=== PATIENT | female | born 1985 | race Two or more races ===

== ENCOUNTER 2019-04-29 10:54 | Day surgery (SDC) | payer BC ==
[~2019-04-29] VITALS: Ht 165.1 cm; Wt 86.3 kg
[~2019-04-29 10:54] MED LIST: BACITRACIN 50,000 UNIT ONE; BACITRACIN OINT 500U/GM, 15 GM ONE; EPINEPHRINE TOPICAL SOLN 1 MG/ML, 30ML ONE; FLUORESCEIN SODIUM 500 MG/5 ML ONE; LIDOCAINE 1%-EPI 1:100K, 20ML ONE; NORE1TAB26 PO; OXYMETAZOLINE NASAL SPRAY 0.05%, 15ML ONE
[2019-04-29 11:04] VITALS: BP 141/93
[2019-04-29] MEDS ORDERED: LACTATED RINGERS 1,000 ML IV SCH (11:08)
[2019-04-29 11:46] LABS: HCG UR SG 1.012 (1.003-1.030)
[2019-04-29] MEDS ORDERED: MIDAZOLAM 1 MG/ML, 2ML ONE (12:02)
[2019-04-29] MEDS ORDERED: FENTANYL PF 250 MCG/5ML ONE (12:02)
[2019-04-29] MEDS ORDERED: PROPOFOL 10 MG/ML, 20ML ONE (12:02)
[2019-04-29] MEDS ORDERED: CEFAZOLIN 1,000 MG ONE ×2 (12:02)
[2019-04-29] MEDS ORDERED: DEXAMETHASONE 4 MG/ML, 1ML ONE ×2 (12:03)
[2019-04-29] MEDS ORDERED: ONDANSETRON 2MG/ML, 2ML ONE (12:03)
[2019-04-29] MEDS ORDERED: ROCURONIUM 10MG/ML,5ML ONE (12:03)
[2019-04-29] MEDS ORDERED: OXYcodone 5 MG/5 ML ORAL.SOL UDC PO PRN (14:00)
[2019-04-29] MEDS ORDERED: LORazepam 2 MG/ML, 1ML IVPush PRN (14:00)
[2019-04-29] MEDS ORDERED: ONDANSETRON 2MG/ML, 2ML IV PRN (14:00)
[2019-04-29] MEDS ORDERED: ACETAMINOPHEN 325 MG TABLET PO PRN (14:00)
[2019-04-29] MEDS ORDERED: METOCLOPRAMIDE 5 MG/ML, 2ML IV PRN (14:00)
[2019-04-29] MEDS ORDERED: MEPERIDINE/PF 25MG/ML,1ML IVPush PRN (14:00)
[2019-04-29] MEDS ORDERED: FENTANYL PF 100 MCG/2ML IV PRN (14:00)
[2019-04-29] MEDS ORDERED: ESMOLOL 100 MG/10 ML ONE (15:02)
[2019-04-29] MEDS ORDERED: FENTANYL PF 100 MCG/2ML ONE (15:32)
[2019-04-29] MEDS ORDERED: OXYcodone 5 MG/5 ML ORAL.SOL UDC ONE (15:57)
[2019-04-29] MEDS ORDERED: HYDROmorphone 1 MG/ML, 1ML VIAL ONE (15:57)
[2019-04-29] MEDS: HYDROmorphone 2 MG/ML, 1ML IVPush PRN ×2 (16:07→16:14)
[2019-04-29] MEDS ORDERED: ONDANSETRON 2MG/ML, 2ML IVPush PRN (17:00)
[2019-04-29] MEDS ORDERED: MORPHINE SULFATE 4 MG/ML, 1ML IVPush PRN (17:00)
== END 2019-04-29 18:10 | disposition home or self-care (01) ==
LOC: OUT 10:54
PROVIDERS: ATTEND Otolaryngology
DX: D36.7 Benign neoplasm of other specified sites (principal); J32.0 Chronic maxillary sinusitis; J32.2 Chronic ethmoidal sinusitis; J32.1 Chronic frontal sinusitis
CPT/HCPCS: 30520; 31253; 31257; 31267; 70486; 81025; 88304; 88305; 88311; 88331; J0690; J1100; J1170; J2250; J2405; J2704; J3010; J3490; J7120